=== PATIENT | female | born 1945 | race American Indian/Alaskan Native ===

== ENCOUNTER 2021-07-05 07:35 | Outpatient (CLI) | payer MEDICARE ==
--- NOTE | 2021-07-05 13:19 | Fluoroscopy Report ---
BARIUM SWALLOW Indication: GASTROESOPHAGEAL REFLUX DISEASE,ESOPHAGEAL DYSPHAGIA. History of multiple previous esop hageal dilatations was given by the patient. Technique: Single and double contrast barium technique utilized to evaluate the esophagus. FINDINGS: To begin the exam, swallowing was evaluated in the lateral position under direct fluorosco py. Swallowing was normal. No mucosal irregularity, mass, mass effect, or critical stenosis. Occasional tertiary contractions were noted in the mid to distal esophagus consistent with mild dysmotility. No hiatal hernia or gastr oesophageal reflux was witnessed during this exam. The patient was able to ingest and pass a barium tablet with mild difficulty. No high-grade esophagea l stricture is seen. IMPRESSION: Mild esophageal dysmotility as described. No high-grade esophageal stricture is seen. Fluoroscopic time: 2.3 minutes Number of fluoroscopic images: 45 Signer Name: Emre Sylvester Jr, MD Signed: 07/05/2021 1:15 PM Workstation Name: [id number]
== END 2021-07-05 07:36 | disposition home or self-care (01) ==
LOC: FLUORO 07:35
PROVIDERS: ATTEND Internal Medicine Gastroenterology
DX: K21.00 Gastro-esophageal reflux disease with esophagitis, without bleeding (principal); R13.19 Other dysphagia
CPT/HCPCS: 74220

== ENCOUNTER 2021-08-10 10:16 | Outpatient (CLI) | payer MEDICARE ==
--- NOTE | 2021-08-10 14:08 | Nuclear Medicine Report ---
NUCLEAR MEDICINE GASTRIC EMPTYING SCAN HISTORY: Gastroesophageal reflux disease TECHNIQUE: Anterior abdominal imaging was performed for 90 minutes following ingestion of 1 mCi of te chnetium 99m sulfur colloid in oatmeal. COMPARISON: No relevant comparison. FINDINGS: Half-life for gastric emptying measures 61 minutes. There is no scintigraphic evidence for reflux disease. IMPRESSION: Normal gastric emptying. Signer Name: Emre Sylvester Jr, MD Signed: 08/10/2021 2:04 PM Workstation Name: [id number]
== END 2021-08-10 10:17 | disposition home or self-care (01) ==
LOC: NM 10:16
PROVIDERS: ATTEND Internal Medicine Gastroenterology
DX: K21.00 Gastro-esophageal reflux disease with esophagitis, without bleeding (principal); R11.2 Nausea with vomiting, unspecified
CPT/HCPCS: 78264; A9541